=== PATIENT | male | born 1985 | race Native Hawaiian/Other Pacific Islander ===

== ENCOUNTER 2017-08-24 07:00 | Emergency (ER) | payer MEDICAID, OTHER ==
[2017-08-24 08:50] VITALS: BP 139/87; PULSE 91; RESP 20; TEMP 98.5; O2SAT 97
--- NOTE | 2017-08-24 09:07 | C.PDOC ---
History Of Present Illness Patient is a 32 y/o male who presents to the ED requesting alcohol detox. Patient admits to periods of intermittent heavy drinking, heavily drinking over the past 2 weeks. Patient reports to have stopped drinking 3 days ago on Saturday, 08/21, and has since been slightly shakey. Denies any nausea or vomiting, abdominal pain, hallucinations, SI or HI. Crisis notified. No other physical complaints at this time. Time Seen by Provider: 08/24/17 07:31 Chief Complaint (Nursing): Substance Abuse History Per: Patient History/Exam Limitations: no limitations Onset/Duration Of Symptoms: Days (3) Current Symptoms Are (Timing): Still Present Suicide/Self Injury Attempted (Context): None Modifying Factor(s): Alcohol Recent travel outside of the [place]: No Past Medical History Reviewed: Historical Data, Nursing Documentation, Vital Signs Vital Signs: Last Vital Signs Temp 98.5 F 08/24/17 08:49 Pulse 91 H 08/24/17 08:49 Resp 20 08/24/17 08:49 BP 139/87 08/24/17 08:49 Pulse Ox 97 08/24/17 11:48 - Medical History PMH: Pancreatitis Surgical History: No Surg Hx Family History: States: No Known Family Hx - Social History Hx Tobacco Use: No Hx Alcohol Use: Yes Hx Substance Use: No - Immunization History Hx Tetanus Toxoid Vaccination: No Hx Influenza Vaccination: No Hx Pneumococcal Vaccination: No Review Of Systems Except As Marked, All Systems Reviewed And Found Negative. Gastrointestinal: Negative for: Nausea, Vomiting, Abdominal Pain Musculoskeletal: Positive for: Other (tremors) Psych: Positive for: Withdrawal (alcohol ). Negative for: Suicidal ideation Physical Exam - Physical Exam Appears: Well Skin: Normal Color, Warm, Dry, No Rash Head: Atraumatic, Normacephalic Eye(s): bilateral: Normal Inspection, PERRL, EOMI Oral Mucosa: Moist Neck: Normal ROM, Supple Chest: Symmetrical Cardiovascular: Rhythm Regular, No Friction Rub, No Murmur Respiratory: Normal Breath Sounds, No Rales, No Rhonchi, No Wheezing Gastrointestinal/Abdominal: Soft, No Tenderness Back: No CVA Tenderness Extremity: Normal ROM, Other (slight hand tremors) Neurological/Psych: Oriented x3, Normal Speech, Normal Cognition Gait: Steady ED Course And Treatment O2 Sat by Pulse Oximetry: 97 (on RA) Pulse Ox Interpretation: Normal Progress Note: Patient given Librium for alcohol withdrawals. Case discussed with Crisis, stating there is no detox availability at this time. On re-exam, the patient reports improvement of symptoms. Ambulatory in the ED with steady gait. Patient given outpatient detox referral and discharged. Disposition - Disposition Referrals: [facility] [Outside] Disposition: HOME/ ROUTINE Disposition Time: 09:05 Condition: STABLE Additional Instructions: Follow up with outpatient detox. Return if worsened. Prescriptions: chlordiazePOXIDE [Chlordiazepoxide HCl] 25 mg PO TID #5 cap Instructions: Alcohol Use - When Is Drinking a Problem? Forms: [employer] (Italian) - Clinical Impression Clinical Impression: Alcohol abuse - Scribe Statement The provider has reviewed the documentation as recorded by the Scribe Cori Tovar All medical record entries made by the Scribe were at my direction and personally dictated by me. I have reviewed the chart and agree that the record accurately reflects my personal performance of the history, physical exam, medical decision making, and the department course for this patient. I have also personally directed, reviewed, and agree with the discharge instructions and disposition.
== END 2017-08-24 09:23 | disposition home or self-care (01) ==
LOC: C.ER 07:00
DX: F10.10 Alcohol abuse, uncomplicated (principal)